=== PATIENT | male | born 1995 | race Caucasian/White ===

== ENCOUNTER 2025-04-20 12:11 | Emergency (ER) | payer OTHER ==
[~2025-04-20] VITALS: Ht 165.1 cm; Wt 79.0 kg
[2025-04-20 12:29] VITALS: O2SAT 98
[2025-04-20] MEDS: FLUORESCEIN SODIUM 1MG/STRIP LEFTEYE ONE (13:15)
[2025-04-20] MEDS: TETRACAINE 0.5% OPHTH DROPS 4ML LEFTEYE ONE (13:15)
[2025-04-20 15:15] VITALS: BP 128/79; PULSE 63; RESP 14; TEMP 36.8; O2SAT 100
== END 2025-04-20 15:27 | disposition home or self-care (01) ==
LOC: ER 12:11
DX: H57.8A2 Foreign body sensation, left eye (principal); H10.32 Unspecified acute conjunctivitis, left eye; W44.9XXA Unspecified foreign body entering into or through a natural orifice, initial encounter; Y93.89 Activity, other specified; Y92.89 Other specified places as the place of occurrence of the external cause; Y99.8 Other external cause status
CPT/HCPCS: 99283